=== PATIENT | male | born 1995 | race Caucasian/White ===

== ENCOUNTER 2022-05-17 08:26 | Emergency (ER) | payer MEDICAID ==
[~2022-05-17] VITALS: Ht 170.2 cm; Wt 75.0 kg
[2022-05-17 10:02] LABS: BASOPHILS % 0.2 % (0.0-2.0); EOSINOPHILS % 0.1 % (0.0-5.0); HEMATOCRIT. 45.1 % (42.0-52.0); HEMOGLOBIN. 15.3 g/dL (14.0-18.0); LYMPHOCYTES % 7.9 % (20.0-50.0); MEAN CORPUSCULAR HEMOGLOBIN 31.3 pg (28.0-32.0); MEAN CORPUSCULAR VOLUME 92.3 fL (80.0-94.0); MEAN PLATELET VOLUME 7.5 fl (7.4-10.4); NEUTROPHILS % 86.8 % (40.0-76.0); PLATELET 268 x1000/uL (130-400); RED BLOOD CELL COUNT 4.88 mill/uL (4.7-6.1); RED CELL DISTRIBUTION WIDTH 13.5 % (11.6-14.6)
[2022-05-17 10:09] LABS: CHLORIDE 107 mEq/L (98-107)
[2022-05-17 10:17] LABS: ETHANOL BLOOD < 10 mg/dL
[2022-05-17 10:51] VITALS: BP 106/55
== END 2022-05-17 10:56 | disposition home or self-care (01) ==
LOC: ER 08:26
DX: G40.909 Epilepsy, unspecified, not intractable, without status epilepticus (principal)
CPT/HCPCS: 36415; 80053; 80320; 85025; 99283; G0480